=== PATIENT | male | born 1950 | race Hispanic/Latino ===

== ENCOUNTER 2016-08-17 14:30 | Emergency (ER) | payer MEDICARE, OTHER ==
[2016-08-17 14:41] VITALS: BMI 28.8
[2016-08-17 14:45] VITALS: BP 151/88; PULSE 95; RESP 18; TEMP 98.3; O2SAT 98
[2016-08-17] MEDS ORDERED: Lidocaine 1% Inj (20ml) INFIL ONE (14:51)
[2016-08-17] MEDS ORDERED: Tetanus/Diphtheria Toxoids 0.5 ml Syringe IM ONE ×2 (14:51→14:55)
[2016-08-17] MEDS ORDERED: Lidocaine 1% Inj (20ml) ONE (14:54)
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
== END 2016-08-17 15:37 | disposition home or self-care (01) ==
LOC: C.ER 14:30
DX: S01.112A Laceration without foreign body of left eyelid and periocular area, initial encounter (principal); Y04.2XXA Assault by strike against or bumped into by another person, initial encounter; Y92.414 Local residential or business street as the place of occurrence of the external cause

== ENCOUNTER 2016-08-19 10:08 | Emergency (ER) | payer MEDICARE, OTHER ==
[2016-08-19 10:08] VITALS: BMI 28.8
[2016-08-19 10:14] VITALS: BP 144/90; PULSE 85; RESP 16; TEMP 97.8; O2SAT 98
--- NOTE | 2016-08-19 10:43 | C.PDOC ---
History Of Present Illness Patient is a 65 y/o male that presents to the ED for wound check. Patient was seen here 2 days ago for left eye injury, had sutures placed, and was instructed to return today for wound check. Otherwise, patient denies any fever , chills, pain, discharge, or any other associated symptoms at this time. Time Seen by Provider: 08/19/16 10:34 Chief Complaint (Nursing): Wound Check History Per: Patient History/Exam Limitations: no limitations Onset/Duration Of Symptoms: Days Ago (2) Current Symptoms Are (Timing): Still Present Location Of Injury: Left: Face, Anterior: Face Quality Of Symptoms: denies: Painful, Itching, Draining Severity: None Pain Scale Rating Of: 0 Recent travel outside of the [place]: No Additional History Per: Patient Past Medical History Reviewed: Historical Data, Nursing Documentation, Vital Signs Vital Signs: Last Vital Signs Temp 97.8 F 08/19/16 10:12 Pulse 85 08/19/16 10:12 Resp 16 08/19/16 10:12 BP 144/90 08/19/16 10:12 Pulse Ox 98 08/19/16 12:24 Family History: States: No Known Family Hx - Social History Hx Alcohol Use: No Hx Substance Use: No - Immunization History Hx Tetanus Toxoid Vaccination: No Hx Influenza Vaccination: No Hx Pneumococcal Vaccination: No Review Of Systems Except As Marked, All Systems Reviewed And Found Negative. Constitutional: Negative for: Fever, Chills Eyes: Negative for: Pain, Vision Change, Conjunctivae Inflammation, Redness Skin: Positive for: Other (swelling below left eye) Neurological: Negative for: Headache, Dizziness Physical Exam - Physical Exam Appears: Non-toxic, No Acute Distress Skin: Warm, Dry, Ecchymosis (ecchymosis and swelling to inferior aspect of left eye; no tenderness), Other (well healed sutured wound immediately under left eye ) Head: Atraumatic, Normacephalic Eye(s): bilateral: EOMI Neck: Normal ROM, Supple Neurological/Psych: Oriented x3, Normal Speech, Normal Cognition ED Course And Treatment O2 Sat by Pulse Oximetry: 98 (on RA) Pulse Ox Interpretation: Normal Medical Decision Making Medical Decision Making: Patient presents for wound check 2 days after laceration repair. Patient offers no complaints. Wound appears well, no signs of cellulitis. Patient is alert and oriented without fever. Patient stable for discharge Disposition Counseled Patient/Family Regarding: Diagnosis, Need For Followup - Disposition Referrals: Catalina Ghosh MD [Staff Provider] - Disposition: HOME/ ROUTINE Disposition Time: 10:42 Condition: STABLE Additional Instructions: Your wound appears to be healing well. Take analgesic as needed Swelling will go down in few days and sutures are absorbable Instructions: Care For Your Absorbable Stitches (ED) - POA Present On Arrival: None - Clinical Impression Clinical Impression: Visit for wound check - PA / [employer] SALES ADVISOR / Resident Statement MD/DO has reviewed & agrees with the documentation as recorded. - Scribe Statement The provider has reviewed the documentation as recorded by the Scribe Diana Conner All medical record entries made by the Scribe were at my direction and personally dictated by me. I have reviewed the chart and agree that the record accurately reflects my personal performance of the history, physical exam, medical decision making, and the department course for this patient. I have also personally directed, reviewed, and agree with the discharge instructions and disposition.
== END 2016-08-19 11:14 | disposition home or self-care (01) ==
LOC: C.ER 10:08
DX: Z51.89 Encounter for other specified aftercare (principal)